=== PATIENT | male | born 1995 | race Caucasian/White ===

== ENCOUNTER 2023-08-23 21:04 | Emergency (ER) | payer MEDICAID ==
[2023-08-23] MEDS: Ondansetron 4 MG Tab.DIS PO ONE (21:22)
[2023-08-23] MEDS: Acetaminophen/HYDROcodone 325-5 MG Tab PO ONE (21:22)
== END 2023-08-24 00:15 | disposition home or self-care (01) ==
LOC: MW.ED 21:04
DX: S93.522A Sprain of metatarsophalangeal joint of left great toe, initial encounter (principal); S93.525A Sprain of metatarsophalangeal joint of left lesser toe(s), initial encounter; W20.8XXA Other cause of strike by thrown, projected or falling object, initial encounter
CPT/HCPCS: 73630; 73660; 99283; A9270